=== PATIENT | female | born 1965 | race Caucasian/White ===

== ENCOUNTER → 2018-06-02 | Outpatient (CLI) | payer OTHER ==
--- NOTE | 2018-06-02 13:43 | P.GSHP ---
History of Present Illness H&P Date: 06/02/18 Chief Complaint: Abnormal left breast ultrasound Miriam is a 53-year-old white female who initially in July 2017 underwent a bilateral diagnostic mammogram. In the left breast there was an area of concern and additional radiographs including a diagnostic mammogram and ultrasound were performed. The recommendation following these studies was to repeat the left breast mammogram and ultrasound in 6 months time. The patient most recently in March 2018 underwent a repeat diagnostic mammogram which revealed probably benign findings a stable asymmetric area of density was less prominent. An ultrasound of the left breast was recommended. An ultrasound of the left breast from 12 to 3:00 was performed. The previously described hyperechoic lesion was not visible. No dominant mass was noted. Elliptical shaped fluid collection was noted at the 3 o'clock position measuring 1.3 x 1.1 cm. It appeared to be a benign fluid collection. Six-month follow-up ultrasound was recommended. The patient does not feel anything of concern. Patient does not have any history of trauma, or infection to the breast. She has no complaints of any nipple discharge or changes. She has had engorgement of her breast. Her period starting in the past, at this time she does have some intermittent discomfort and fullness in her breast which she believes is related to hormonal changes. Family History: 1.none Hormonal History: menarche: 13 : 2, 1 [place], 1 live , age at 35, breast fed: no menopause: perimenopause/still having periods; severe pain with periods so on BCP to regulate BCP: 20 years hormoens: none History: 1. tonsil Medical History: 1. none Social History: smoke: none alcohol: none dugs: none - Constitutional Constitutional: Denies chills, Denies fever - EENT Eyes: denies blurred vision, denies pain Ears: deny: decreased hearing, tinnitus Ears, nose, mouth and throat: Denies headache, Denies sore throat - Breasts Breasts: bilateral: as per HPI - Cardiovascular Cardiovascular: Denies chest pain, Denies shortness of breath - Respiratory Respiratory: Denies cough, Denies 7 - Gastrointestinal Gastrointestinal: Denies abdominal pain, Denies diarrhea, Denies nausea, Denies vomiting - Genitourinary (Female) Genitourinary: Denies dysuria, Denies hematuria - Menstruation Comment: perimenopausal - Genitourinary (Male) Genitourinary: Denies dysuria, Denies hematuria - Musculoskeletal Musculoskeletal: Denies myalgias - Integumentary Integumentary: Denies pruritus, Denies rash - Neurological Neurological: Denies numbness, Denies weakness - Psychiatric Psychiatric: Denies anxiety, Denies depression - Endocrine Endocrine: Denies fatigue, Denies weight change - Hematologic/Lymphatic Comment: none - Allergic/Immunologic Comment: bacitracin, neomycin, polymyxin B, sulfa Medications and Allergies Home Medications Medication Instructions Recorded Confirmed Type No Known Home Medications 06/02/18 06/02/18 History Allergies Allergy/AdvReac Type Severity Reaction Status Date / Time bacitracin Allergy Rash/Hives Unverified 06/02/18 13:04 [From Neosporin ([id number])] neomycin Allergy Rash/Hives Unverified 06/02/18 13:04 [From Neosporin ([id number])] polymyxin B Allergy Rash/Hives Unverified 06/02/18 13:04 [From Neosporin ([id number])] Sulfa (Sulfonamide Allergy Rash/Hives Unverified 06/02/18 13:03 Antibiotics) Surgical - Exam - General well developed, well nourished, no distress - Eyes normal ocular movement, no icteric - ENT no hearing loss, no congestion - Neck no masses, trachea midline - Respiratory normal respiratory effort, clear to auscultation - Cardiovascular Rhythm: regular Heart Sounds: normal: S1, S2 - Abdomen Abdomen: soft, non tender, no guarding, no rigid, no rebound - Integumentary normal turgor no rash, no abnormal pigmentation - Neurologic no disoriented, no combative - Musculoskeletal normal gait, normal posture - Psychiatric oriented to time, oriented to person, oriented to place, speech is normal, memory intact breast: right multi-positional examination no dominant masses or nodules of concern, fibrocystic changes Right axilla: No adenopathy of concern Left breast: Multi-positional examination no dominant masses or nodules of concern, fibrocystic changes, particularly attention paid to the upper outer quadrant area and no lesions of concern noted Left axilla: No adenopathy of concern, shoddy adenopathy Results mamogram and ultrasound results reviewed Assessment and Plan Assessment: Impression 1. Radiographic abnormality left breast which is stabilized 2. Perimenopausal 3. Fibrocystic breast changes At this time patient does not have any radiographic lesions or lesions on physical exam which would warrant biopsy. We have discussed causes for breast pain which would include caffeine related to caffeinated beverages, chocolate, or nicotine. The patient does not partake of any of these things. I suspect her intermittent breast discomfort is related to hormonal changes related to the fact that she is perimenopausal. At this time she does not wish any further intervention for this. Plan: 1. Bilateral mammogram in 6 months, left breast ultrasound in 6 months 2. Follow-up appointment here in 6 months C: Dr. Bethea
[2018-06-02 13:52] VITALS: BP 108/66; PULSE 64; RESP 18; TEMP 97.2; BMI 21.9
== END | disposition home or self-care (01) ==
LOC: WWCWWP 12:42 → MERGE 12:42
PROVIDERS: ATTEND Surgery
DX: Z53.9 Procedure and treatment not carried out, unspecified reason (principal)